=== PATIENT | male | born 1995 | race Caucasian/White ===

== ENCOUNTER 2021-02-15 14:33 | Emergency (ER) | payer OTHER ==
[~2021-02-15] VITALS: Ht 180.3 cm; Wt 90.7 kg
[2021-02-15] MEDS ORDERED: Bactrim Ds Tab1 EACH PO (16:16)
[2021-02-15] MEDS ORDERED: CEPH500 PO (16:16)
== END 2021-02-15 16:41 | disposition home or self-care (01) ==
LOC: ER 14:33
DX: L02.01 Cutaneous abscess of face (principal); F17.210 Nicotine dependence, cigarettes, uncomplicated
CPT/HCPCS: 99283

== ENCOUNTER 2021-06-24 18:24 | Emergency (ER) | payer OTHER ==
[~2021-06-24] VITALS: Ht 180.3 cm; Wt 104.3 kg
[~2021-06-24 18:24] MED LIST: Bactrim Ds Tab1 EACH PO; CEPH500 PO
[2021-06-24] MEDS ORDERED: LIDO700A20 TOP (19:58)
[2021-06-24] MEDS ORDERED: Robaxin750 MG PO (19:58)
== END 2021-06-24 20:11 | disposition home or self-care (01) ==
LOC: ER 18:24
DX: M54.41 Lumbago with sciatica, right side (principal); F17.210 Nicotine dependence, cigarettes, uncomplicated
CPT/HCPCS: 99283; A9270